=== PATIENT | female | born 1965 ===

== ENCOUNTER 2021-06-22 15:07 | Day surgery (SDC) | payer OTHER ==
[2021-06-25] MEDS ORDERED: PRAV20 (12:12)
[2021-06-25] MEDS ORDERED: HYDCHL25 (12:12)
== END 2021-06-23 22:41 | disposition home or self-care (01) ==
LOC: MOI US 15:07 → MOI MAM 07-09 10:00
DX: N64.89 Other specified disorders of breast (principal)
CPT/HCPCS: 19083; 77065; 88305; A4648

== ENCOUNTER 2021-07-02 11:45 | Day surgery (SDC) | payer OTHER ==
[~2021-07-02] VITALS: Ht 162.6 cm; Wt 84.0 kg
[~2021-07-02 11:45] MED LIST: HYDCHL25; PRAV20
[2021-07-02] MEDS ORDERED: FISH OIL 1,2001 EAC7 (12:13)
[2021-07-02] MEDS ORDERED: PROG100 (12:13)
[2021-07-02] MEDS ORDERED: TURMERIC1 GM (12:14)
[2021-07-02] MEDS ORDERED: PROBIOTIC1 EA13 (12:14)
[2021-07-02] MEDS ORDERED: CALCIUM MAGNES1 EACH (12:15)
[2021-07-02] MEDS ORDERED: CENTRUM SILVER1 EAC2 (12:15)
== END 2021-07-02 15:05 | disposition home or self-care (01) ==
LOC: ORSCSDS 11:45
PROVIDERS: Student in an Organized Health Care Education/Training Program
PROC: 0DBH8ZX Excision of Cecum, Via Natural or Artificial Opening Endoscopic, Diagnostic (ICD-10-PCS; principal; 2021-07-02 13:00)
DX: Z12.11 Encounter for screening for malignant neoplasm of colon (principal); D12.0 Benign neoplasm of cecum; K57.30 Diverticulosis of large intestine without perforation or abscess without bleeding; I10 Essential (primary) hypertension; Z87.891 Personal history of nicotine dependence; Z79.899 Other long term (current) drug therapy
CPT/HCPCS: 88305; J0330; J0461; J2405; J2704; J7120

== ENCOUNTER 2025-05-20 10:20 | Day surgery (SDC) | payer OTHER ==
[2025-05-20] VITALS (16 sets, daily range): BP systolic 76–146; BP diastolic 29–89
[~2025-05-20] VITALS: Ht 162.6 cm; Wt 89.3 kg
[~2025-05-20 10:20] MED LIST changes: +ATOR40TA PO; +BUPR150ER PO; +CALCIUM MAGNES1 EACH; +CENTRUM SILVER1 EAC2; +FISH OIL 1,2001 EAC7; +LISI5 PO; +PROBIOTIC1 EA13; +PROG100; +TURMERIC1 GM
--- NOTE | 2025-05-20 10:58 | NUR ---
History, Chart, Medications and Allergies reviewed before start of procedure. Pre-Op teaching done. Pt verbalizes understanding. Patient confirms NPO status and agrees with scheduled surgery. Patient states colon prep results DARK YELLOW.
--- NOTE | 2025-05-20 10:59 | NUR ---
PT UNABLE TO REMOVE BILATERAL EARRINGS AND L HAND RING ON THUMB FINGER.
--- NOTE | 2025-05-20 11:44 | NUR ---
05/20/25 1144 Nader Molina CONFIRMED AND REVIEWED H&P, MEDCICATIONS, ALLERGIES, MEDICAL HISTORY, RESPIRATORY HISTORY, VITAL SIGNS, 3-LEAD EKG, CONSENTS, AND PHYSICIAN ORDERS. PATIENT CONFIRMS NPO STATUS AND AGREES WITH SCHEDULED PROCEDURE. MONITOR INTACT WITH CONTINUOUS PULSE OXIMETRY, CAPNOGRAPHY, 3-LEAD EKG, INTERMITTENT BP. SUPPLEMENTAL O2 TO BE TITRATED THROUGHOUT PROCEDURE TO MAINTAIN O2 SATURATION ABOVE 90%. PATIENT DETERMINED TO BE ASA APPROPRIATE FOR PROPOFOL SEDATION PRIOR TO START OF PROCEDURE BY DR. HODGSON
--- NOTE | 2025-05-20 12:35 | NUR ---
Patient States Post-Procedure ride home has been arranged. Discharged via wheelchair to private car for ride home. Discharge instructions reviewed with patient. Patient verbalizes understanding. Copy given to patient to take home. vs RETURN TO [facility]
== END 2025-05-20 23:00 | disposition home or self-care (01) ==
LOC: ORSCMMR 10:20 → ORD 11:30 → ORSCMMR 23:00
PROVIDERS: Internal Medicine Gastroenterology
PROC: 0DBH8ZX Excision of Cecum, Via Natural or Artificial Opening Endoscopic, Diagnostic (ICD-10-PCS; principal; 2025-05-20 11:30)
DX: Z12.11 Encounter for screening for malignant neoplasm of colon (principal); D12.0 Benign neoplasm of cecum; Z86.0101 Personal history of adenomatous and serrated colon polyps; I10 Essential (primary) hypertension; E78.00 Pure hypercholesterolemia, unspecified; F32.A Depression, unspecified; Z79.899 Other long term (current) drug therapy
CPT/HCPCS: 88305; J2704; J7120